=== PATIENT | female | born 1995 | race African-American/Black ===

== ENCOUNTER 2020-01-04 12:14 | Emergency (ER) | payer MEDICAID ==
[~2020-01-04] VITALS: Ht 172.7 cm; Wt 127.0 kg
--- NOTE | 2020-01-04 13:00 | NUR ---
ED Nurse Note: PT. BROUGHT IN BY 67 FROM THE PT.'S NEIGHBOR'S HOUSE. PER EMS, PT. HAD A MINUTE OF SEIZURE. NO JHEAD TRAUMA REPORTED. PT. STATED COUGHING UPON ER ARRIVAL. PT. PLACED ON THE FLEXIBLE MACHINING SYSTEM MACHINIST IN A SIDE LYING POSITION AND 30 DEGREE HEAD OF SHERRI BED ELEVATION. CLEAR LUNG SOUNDS TO AUSCULATION. SZ PRECAUTION INITATED
[2020-01-04 13:13] LABS: ANION GAP 11 mmol/L (5-15); BLOOD UREA NITROGEN 10 mg/dL (7-18); CARBON DIOXIDE 24 MMOL/L (21-32); CHLORIDE 103 MMOL/L (98-107); POTASSIUM 4.5 MMOL/L (3.5-5.1); SODIUM 138 MMOL/L (136-145)
[2020-01-04 13:17] LABS: ALANINE AMINOTRANSFERASE 15 U/L (12-78); ALBUMIN 3.9 G/DL (3.4-5.0); ALBUMIN/GLOBULIN RATIO 1.1 (1.0-2.7); ALKALINE PHOSPHATASE 69 U/L (46-116); ASPARTATE AMINO TRANSFERASE 38 U/L (15-37); BILIRUBIN,TOTAL 0.6 MG/DL (0.2-1.0)
[2020-01-04 13:36] LABS: BASOPHILS % (AUTO) 1.2 % (0.0-2.0); EOSINOPHILS % (AUTO) 4.5 % (0.0-3.0); HEMATOCRIT 44.8 % (37.0-47.0); HEMOGLOBIN 14.5 G/DL (12.0-16.0); LYMPHOCYTES % (AUTO) 10.1 % (20.0-45.0); MEAN CORPUSCULAR VOLUME 84 FL (80-99); MONOCYTES % (AUTO) 4.3 % (1.0-10.0); NEUTROPHILS % (AUTO) 79.9 % (45.0-75.0); PLATELET COUNT 118 K/UL (150-450); RED BLOOD COUNT 5.31 M/UL (4.20-5.40); RED CELL DISTRIBUTION WIDTH 15.9 % (11.6-14.8); WHITE BLOOD COUNT 8.6 K/UL (4.8-10.8)
[2020-01-04 13:58] VITALS: BP 115/77
[2020-01-04] MEDS ORDERED: Solu-MEDROL 125mg Inj IVP ONE (14:30)
[2020-01-04] MEDS: Albuterol/Ipratropium 3ml neb HHN SCH ×2 (14:51→14:52)
--- NOTE | 2020-01-04 15:00 | NUR ---
ED Nurse Note: pt. refused covid swab. dr. gongora tried to talked to the pt explaining the risks and benefits of the covid swab but pt. still said no
--- NOTE | 2020-01-04 15:19 | NUR ---
HAND-OFF: Report given to JAYLAN Guzman.
--- NOTE | 2020-01-04 15:20 | NUR ---
ED Nurse Note: Report received from JAYLAN Araujo. Patient is in bed with all safety and seizure precuations met. She is aaox4. NAD noted. Pt currently receiving breathing treatment by RT.
--- NOTE | 2020-01-04 15:40 | NUR ---
ED Nurse Note: Pt c/o generalized body pian s/p seizure; JOVANNI Crawford notified.
[2020-01-04] MEDS ORDERED: Ketorolac 30mg Inj IV ONE (16:00)
[2020-01-04] MEDS ORDERED: LAMICTAL25 MG ORAL (16:06)
[2020-01-04] MEDS ORDERED: PREDNISONE20 MG ORAL (16:06)
[2020-01-04] MEDS ORDERED: PROAIR HFA8.5 GM INH (16:06)
--- NOTE | 2020-01-04 16:15 | NUR ---
ED Nurse Note: ERMD ok with not obtaining urine sample.
--- NOTE | 2020-01-04 16:32 | NUR ---
ED Nurse Note: Patient reports decreased pain and states she feels better after breathing treatment. She is breathing normal and unlabored and does not appear anxious.
--- NOTE | 2020-01-04 16:33 | Emergency Room Report ---
History of Present Illness General Chief Complaint: Seizure Source: Patient, EMS Present Illness HPI 24-year-old female presents to ED status post seizure. Brought in by EMS from home. Had a witnessed seizure. Lasted about 1 minute. No reported head injury. On arrival patient postictal but becoming more awake. States she has seizures and takes Lamictal. States she skipped a few doses. States she is al so coughing and wheezing. History of asthma. Denies fevers or chills. Denies chest pain. Denies sick contacts. No other aggravating relieving factors. Denies any other associated symptoms Allergies: Coded Allergies: No Known Allergies (Unverified , 01/04/20) COVID-19 Screening Contact w/high risk pt: No Experienced COVID-19 symptoms?: No COVID-19 Testing performed STRATIGRAPHER: No Patient History Past Medical History: asthma Past Surgical History: none Pertinent Family History: none Social History: Denies: smoking, alcohol use, drug use Now: No Immunizations: UTD Reviewed Nursing Documentation: PMH: Agreed; PSxH: Agreed Nursing Documentation-PMH Hx Asthma: Yes Hx Seizures: Yes Review of Systems All Other Systems: negative except mentioned in HPI Physical Exam Vital Signs Date Time Temp Pulse Resp B/P (MAP) Pulse Ox O2 Delivery O2 Flow Rate FiO2 01/04/20 12:10 97.2 110 19 156/100 (118) 90 Room Air 01/04/20 15:22 21 Sp02 EP Interpretation: reviewed, normal General Appearance: no apparent distress, GCS 15, non-toxic, obese, Postictal Head: normocephalic, atraumatic Eyes: bilateral eye normal inspection, bilateral eye PERRL ENT: hearing grossly normal, normal pharynx, no angioedema, normal voice Neck: full range of motion, supple/symm/no masses Respiratory: chest non-tender, speaking full sentences, wheezing Cardiovascular #1: regular rate, rhythm, no edema Cardiovascular #2: 2+ carotid (R), 2+ carotid (L), 2+ radial (R), 2+ radial (L), 2+ dorsalis pedis (R), 2+ dorsalis pedis (L) Gastrointestinal: normal bowel sounds, non tender, soft, non-distended, no guarding, no rebound Rectal: deferred Genitourinary: normal inspection, no CVA tenderness Musculoskeletal: back normal, normal range of motion, gait/station normal, non- tender Neurologic: alert, motor strength/tone normal, oriented x3, sensory intact, responsive, speech normal Psychiatric: judgement/insight normal, memory normal, mood/affect normal, no suicidal/homicidal ideation Reflexes: 3+ bicep (R), 3+ bicep (L), 3+ tricep (R), 3+ tricep (L), 3+ knee (R), 3+ knee (L) Skin: no rash Lymphatic: no adenopathy Procedures Critical Care Time Critical Care Time i. I feel this is a highly complex case requiring extensive working including EKG/Rhythm strip, Xray/CT/US, Blood/urine lab work, repeat exams while in ED, and administration of strong opiates/narcotics for pain control, admission to hospital or close patient follow up. Total time: 45 min bedside evaluation and treatment excludes procedures (EKG). Reason for critical care: Seizure, asthma exacerbation Possible complications: hypotension, hypertension, WI, shock, arrhythmias, metabolic acidosis, end organ damage, respiratory failure. Interventions: Labs, IV fluids, Lamictal, nebulizer treatment, Toradol Course: Patient presenting status post seizure. Missed her Lamictal dose. Wheezing. Given breathing treatments. O2 sats and breathing improved. Given Lamictal. Patient now awake alert oriented x3 Consultations: nursing staff, EMS, family Performed by: Dr Crawford Tolerated well condition = serious j. because of unstable vital signs this patient had a condition that could potentially threaten life or limb. I feel this is a critical patient who required my full attention while patient was considered critical. Total Critical Care Time excluding procedures was greater than 45 minutes Medical Decision Making Diagnostic Impression: Primary Impression: Asthma Qualified Codes: J45.21 - Mild intermittent asthma with (acute) exacerbation Additional Impression: Seizure disorder ER Course Hospital Course 24-year-old F presents to ED status post seizure. wheezing. Differential diagnosis includes- breakthrough seizure, alcohol abuse, noncompliance with medication Clinical course Patient placed on stretcher. Initial history and physical I ordered labs, IV fluids, nebs. Labs-electrolytes okay, no leukocytosis, hemoglobin/hematocrit stable. EKGsinus tachycardia no acute ischemic changes interpreted by me Given Lamictal in ED. Breathing improved after nebulizer treatments. Patient alert oriented x3. Discussed findings with patient. Safe for discharge for close outpatient follow-up. I will provide refills of her Lamictal and albuterol. Diagnosis - asthma exacerbation, seizure disorder stable and discharged to home. Followup with PMD. Return to ED if symptoms recur or worsen Laboratory Tests Test 01/04/20 12:54 01/04/20 13:15 01/04/20 13:18 Sodium Level 138 MMOL/L (136-145) Potassium Level 4.5 MMOL/L (3.5-5.1) 3.8 MMOL/L (3.5-5.1) Chloride Level 103 MMOL/L (98-107) Carbon Dioxide Level 24 MMOL/L (21-32) Anion Gap 11 mmol/L (5-15) Blood Urea Nitrogen 10 mg/dL (7-18) Creatinine 1.0 MG/DL (0.55-1.30) Estimat Glomerular Filtration Rate > 60 mL/min (>60) Glucose Level 98 MG/DL (74-106) Calcium Level 9.0 MG/DL (8.5-10.1) Total Bilirubin 0.6 MG/DL (0.2-1.0) Aspartate Amino Transf (AST/SGOT) 38 U/L (15-37) H Alanine Aminotransferase (ALT/SGPT) 15 U/L (12-78) Alkaline Phosphatase 69 U/L (46-116) Total Protein 7.5 G/DL (6.4-8.2) Albumin 3.9 G/DL (3.4-5.0) Globulin 3.6 g/dL Albumin/Globulin Ratio 1.1 (1.0-2.7) Salicylates Level 2.7 ug/mL (2.8-20) L Acetaminophen Level < 2 MCG/ML (10-30) L Phenytoin (Dilantin) Level < 0.5 ug/mL (10-20) L Phenobarbital Level < 1.0 ug/mL (15-40) L Serum Alcohol < 3 mg/dL White Blood Count 8.6 K/UL (4.8-10.8) Red Blood Count 5.31 M/UL (4.20-5.40) Hemoglobin 14.5 G/DL (12.0-16.0) Hematocrit 44.8 % (37.0-47.0) Mean Corpuscular Volume 84 FL (80-99) Mean Corpuscular Hemoglobin 27.3 PG (27.0-31.0) Mean Corpuscular Hemoglobin Concent 32.4 G/DL (32.0-36.0) Red Cell Distribution Width 15.9 % (11.6-14.8) H Platelet Count 118 K/UL (150-450) L Mean Platelet Volume 10.5 FL (6.5-10.1) H Neutrophils (%) (Auto) 79.9 % (45.0-75.0) H Lymphocytes (%) (Auto) 10.1 % (20.0-45.0) L Monocytes (%) (Auto) 4.3 % (1.0-10.0) Eosinophils (%) (Auto) 4.5 % (0.0-3.0) H Basophils (%) (Auto) 1.2 % (0.0-2.0) EKG Diagnostic Results Rate: tachycardiac Rhythm: NSR ST Segments: no acute changes ASA given to the pt in ED: No Rhythm Strip Diag. Results EP Interpretation: yes Rhythm: NSR, no PVC's, no ectopy Last Vital Signs Date Time Temp Pulse Resp B/P (MAP) Pulse Ox O2 Delivery O2 Flow Rate FiO2 01/04/20 15:22 120 20 100 Room Air 21 112 24 92 01/04/20 13:58 98.0 115/77 Status: improved Disposition: HOME, SELF-CARE Condition: Stable Scripts Lamotrigine* (LAMICTAL*) 25 Mg Tablet 25 MG ORAL BID, #60 TAB 0 Refills Prov: Buddy Crawford MD 01/04/20 Prednisone* (PREDNISONE*) 20 Mg Tablet 40 MG ORAL DAILY, #10 TAB Prov: Buddy Crawford MD 01/04/20 Albuterol Sulfate* (PROAIR HFA*) 8.5 Gm Hfa.aer.ad 2 PUFFS INH Q6H, #8.5 GM 0 Refills Prov: Buddy Crawford MD 01/04/20 Patient Instructions: Seizure, Adult Buddy Crawford MD Jan 04, 2020 16:33
[2020-01-04 16:35] VITALS: BP 120/75
--- NOTE | 2020-01-04 16:35 | NUR ---
ER DISCHARGE NOTE: Patient is cleared to be discharged per ERMD, pt is aox4, on room air, with stable vital signs. ERMD aware of HR. pt was given dc and prescription instructions, pt was able to verbalize understanding, pt id band and iv site removed without complications. pt is able to ambulate with steady gait. pt took all belongings.
== END 2020-01-04 16:35 | disposition home or self-care (01) ==
LOC: EDBD 12:14 → EMR 12:49
DX: G40.909 Epilepsy, unspecified, not intractable, without status epilepticus (principal); J45.21 Mild intermittent asthma with (acute) exacerbation; E66.9 Obesity, unspecified; R00.0 Tachycardia, unspecified; Z68.41 Body mass index [BMI] 40.0-44.9, adult
CPT/HCPCS: 36415; 80053; 80184; 80185; 84132; 85025; 94640; 96361; 96374; 96375; G0480; G0481; J1885; J2930; J7030; Z7502; 99291; J7620